=== PATIENT | male | born 1960 | race Caucasian/White ===

== ENCOUNTER 2019-07-10 13:07 | Emergency (ER) | payer SELFPAY ==
--- NOTE | 2019-07-10 14:18 | RAD ---
EXAM DESCRIPTION: Abdomen Flat Upright (accession [id number]), Chest,2 Views (accession [id number]) CLINICAL HISTORY: 59 years Male, bloody diarrhea 4 days COMPARISON: None. Findings: Four views/radiographs Cardiac silhouette and pulmonary vasculature are within normal limits. No pneumothorax. No pleural effusion. The lungs are hyperexpanded. The right lung is clear. Focal left perihilar infiltrate. Atherosclerotic plaque in the thoracic aorta. No free air beneath diaphragm. Nonobstructive bowel gas pattern. No suspicious calcification. No organomegaly. No air-fluid level. Moderate stool volume. No acute osseous abnormality identified. IMPRESSION: Focal left perihilar infiltrate which may reflect pneumonia. Recommend repeat chest radiograph in six weeks. Electronically signed by: Catalino Joy MD 07/10/2019 2:16 PM [facility]
--- NOTE | 2019-07-10 14:18 | RAD ---
EXAM DESCRIPTION: Abdomen Flat Upright (accession [id number]), Chest,2 Views (accession [id number]) CLINICAL HISTORY: 59 years Male, bloody diarrhea 4 days COMPARISON: None. Findings: Four views/radiographs Cardiac silhouette and pulmonary vasculature are within normal limits. No pneumothorax. No pleural effusion. The lungs are hyperexpanded. The right lung is clear. Focal left perihilar infiltrate. Atherosclerotic plaque in the thoracic aorta. No free air beneath diaphragm. Nonobstructive bowel gas pattern. No suspicious calcification. No organomegaly. No air-fluid level. Moderate stool volume. No acute osseous abnormality identified. IMPRESSION: Focal left perihilar infiltrate which may reflect pneumonia. Recommend repeat chest radiograph in six weeks. Electronically signed by: Catalino Joy MD 07/10/2019 2:16 PM [facility]
[2019-07-10] MEDS ORDERED: SODIUM CHLORIDE 0.9% 1000ML 1,000 ML IVS ONE ×2 (14:23→16:07)
[2019-07-10] MEDS ORDERED: ACETYLCYSTEIN 20 % 6,000 MG/30 ML VIAL PO ONE (14:24)
--- NOTE | 2019-07-10 15:39 | CT ---
EXAM DESCRIPTION: Abdomen/Pelvis w/Contrast CLINICAL HISTORY: rlq pain, bloody diarrhea COMPARISON: None. TECHNIQUE: Postcontrast CT images of the abdomen and pelvis are obtained using standard imaging protocol. This exam was performed according to our departmental dose-optimization program, which includes automated exposure control, adjustment of the mA and/or kV according to patient size and/or use of iterative reconstruction technique . FINDINGS: Findings in the lower chest are described on CT of the chest from today. The liver, spleen, pancreas, adrenal glands, and contracted gallbladder are unremarkable. Moderate mostly calcific atherosclerotic disease of the abdomen and pelvis. Focal area of decreased enhancement in the superior pole of the right kidney measures at least 1.8 x 1.4 cm. This has a somewhat wedge-shaped appearance. Small area more posteriorly is seen. Both kidneys show dual collecting systems. The ureters join proximally.. No nephrolithiasis. 2 mm nonobstructing calcification in the midpole calyx of the upper pole moiety of the left kidney best seen on coronal and sagittal reconstructed images. Moderate circumferential urinary bladder wall thickening is seen with poor distention of the urinary bladder. Bladder wall thickness measures 6 mm. Mild prostate calcifications. Appendix is normal and air-filled. Mild wall thickening of the stomach may be secondary to poor distention. No small bowel obstruction or bowel wall thickening. Mild to moderate scattered diverticuli of the colon most significant in the descending to sigmoid region without associated inflammatory changes or fluid collections. No pathologic lymphadenopathy. No free intraperitoneal air or abnormal drainable fluid collections. Osseous structures show no aggressive bony lesions. Mild spondylitic changes of the spine. IMPRESSION: Focal area of decreased attenuation or enhancement in the upper pole the right kidney is nonspecific. Differential includes focal area of infectious or inflammatory process such as focal lobar nephronia or pyelonephritis versus partial infarct. Correlate with urinalysis and culture for infectious etiology. Diffuse circumferential urinary bladder wall thickening could be secondary to poor distention of the urinary bladder versus some degree of chronic bladder outlet obstruction. Infectious or inflammatory process can have a similar appearance. Electronically signed by: Con North MD 07/10/2019 3:38 PM [employer]
--- NOTE | 2019-07-10 15:54 | CT ---
EXAM DESCRIPTION: CTA Chest CLINICAL HISTORY: upper back pain elevated ddimer COMPARISON: None. TECHNIQUE: Postcontrast CT images of the chest are obtained using pulmonary embolism imaging protocol. Three-D MIP reconstructed images of the arterial vasculature are obtained. Coronal and sagittal reconstructed images of the also provided. This exam was performed according to our departmental dose-optimization program, which includes automated exposure control, adjustment of the mA and/or kV according to patient size and/or use of iterative reconstruction technique . FINDINGS: Heart is normal size. Mild coronary artery calcifications. Mild dilatation of the ascending thoracic aorta which measures 4.1 cm at the aortic root and 4.1 cm of the mid ascending thoracic aorta. No dissection. Scattered calcified plaque of the thoracic aorta. No filling defects or emboli are seen in the pulmonary arteries. Borderline mediastinal lymphadenopathy. Lymph nodes measure maximum 9 mm short axis. Hilar lymph nodes are seen measuring up to 9 mm. No pleural or pericardial effusion. Lungs are normally aerated. Mild groundglass attenuation and interstitial thickening in the periphery of the right lower lobe. Similar area of airspace groundglass attenuation and interstitial thickening with mild bronchiectasis in the central left upper lobe. Calcified pulmonary nodule in the anterior left lower lobe. Mild areas of groundglass attenuation are seen in the periphery of the lower lobes bilaterally. Osseous structures show no aggressive bony lesions. Remote appearing anterior wedge compression deformities are seen at T3, T4, T5, and T6. IMPRESSION: Vague areas of groundglass attenuation and interstitial thickening with mild bronchiectasis in the right lower lobe and central left upper lobe likely represent infectious or inflammatory etiology. No solid soft tissue component is seen. Consider follow-up CT imaging in 6-12 months. Mild areas of groundglass attenuation in the periphery of the lungs bilaterally mainly in the lower lobes could represent areas of air trapping. Mild dilatation of the ascending thoracic aorta at the level of the aortic root and mid ascending thoracic aorta. Borderline mediastinal and hilar lymphadenopathy is likely reactive. Old granulomatous disease is seen. Electronically signed by: Con North MD 07/10/2019 3:52 PM [employer]
[2019-07-10] MEDS ORDERED: metroNIDAZOLE 500 MG TAB PO ONE (17:39)
[2019-07-10] MEDS ORDERED: OSELTAMIVIR 75 MG CAP PO ONE (17:39)
[2019-07-10] MEDS ORDERED: AMOXICILLIN & POT CLAVULANATE 875 MG TAB PO ONE (17:39)
--- NOTE | 2019-07-10 17:43 | ED.PDOC ---
History of Present Illness - General Chief Complaint: Respiratory Problem Stated Complaint: posterior chest pain, dyspnea Time Seen by Provider: 07/10/19 13:08 Source: patient Exam Limitations: no limitations - History of Present Illness Initial Comments: The patient is a 59-year-old male presented to the emergency room secondary to a constellation of symptoms. The patient has been having upper respiratory symptoms for the last 3 weeks. On Sunday of this week he went to his primary care doctor who did a swab and diagnosed him with influenza but apparently did not start him on Tamiflu. He has continued to have upper respiratory symptoms along with upper back pain that started yesterday. Additionally over the last 3 to 4 days he has started having 1-2 episodes of diarrhea with some blood in it. He has had low-grade fevers. No vomiting but mild nausea. No syncope or near syncope. He reports about a 12 pound weight loss over the past 3 weeks. No urinary symptoms. No chest pain. No palpitations. No known risk factors for C. difficile. He denies constipation or external hemorrhoids. Timing/Duration: unsure Severity: moderate Improving Factors: nothing Worsening Factors: nothing Associated Symptoms: cough, diaphoresis, fever/chills, loss of appetite, malaise, weakness Allergies/Adverse Reactions: Allergies NO KNOWN ALLERGY Allergy (Verified 08/28/13 08:07) Home Medications: Ambulatory Orders Lisinopril 20 mg PO DAILY 08/27/13 Amoxicillin & Pot Clavulanate [Augmentin Tab] 875 mg PO BID #10 tab 07/10/19 Esomeprazole Magnesium [Nexium] 40 mg PO DAILY #30 cap 07/10/19 Metoprolol Tartrate 100 mg PO BID 07/10/19 Metronidazole 500 mg PO TID #20 tab 07/10/19 Oseltamivir Capsule [Tamiflu] 75 mg PO BID 5 Days #10 capsule 07/10/19 Sucralfate Tab [Carafate Tab] 1 gm PO QID #60 tab 07/10/19 Review of Systems - Review of Systems Constitutional: States: fever, malaise, weakness EENTM: States: nose congestion, throat pain Respiratory: States: cough, short of breath - With activity Cardiology: States: no symptoms reported Gastrointestinal/Abdominal: States: diarrhea, nausea Genitourinary: States: no symptoms reported Musculoskeletal: States: see HPI - Body aches Skin: States: no symptoms reported Neurological: States: headache Endocrine: States: unexplained weight loss Hematologic/Lymphatic: States: no symptoms reported All other Systems: No Change from Baseline Past Medical History (General) - Patient Medical History Hx Seizures: No Hx Stroke: Yes - TIA Hx Asthma: No Hx of COPD: No Hx Cardiac Disorders: No Hx Congestive Heart Failure: No Hx Pacemaker: No Hx Hypertension: Yes Hx Diabetes: No Hx MRSA: No Surgical History: no surgical history - Vaccination History Hx Pneumococcal Vaccination: No - Social History Hx Tobacco Use: Yes Hx Alcohol Use: Yes - social drinker Hx Substance Use: No Hx Physical Abuse: No Hx Emotional Abuse: No Family Medical History - Family History Father Family History: Unknown Physical Exam - Physical Exam General Appearance: Alert, No apparent distress Eye Exam: bilateral normal Ears, Nose, Throat: hearing grossly normal, normal pharynx, nasal congestion Neck: full range of motion, supple Respiratory: no respiratory distress, no accessory muscle use, rhonchi Cardiovascular/Chest: normal peripheral pulses, regular rate, rhythm, no edema Peripheral Pulses: radial,right: 2+, radial,left: 2+ Gastrointestinal/Abdominal: soft, other - Mild right lower quadrant discomfort to palpation. No palpable mass. No rebound or peritoneal signs. 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 The patient tested positive for the flu earlier in the week. As he is still symptomatic we are going to go ahead and place him on Tamiflu. Additionally he will be covered with Augmentin for both pulmonary and GI reasons. The patient is having diarrhea with some blood in it. The source of this is not entirely certain at this point. No evidence of any uncontrolled bleeding. The patient is going to be covered with Augmentin and metronidazole for this purpose. Additionally I do want him to bring back a stool sample to be checked for C. difficile colitis as that certainly changes the treatment and monitoring. He will be placed on Nexium and Carafate for the next few weeks to reduce any gastritis issues. He has been told that if the condition worsens he will need to return for additional work-up and possibly endoscopy. I would also recommend the patient start taking a probiotic daily for the next month to help reduce intestinal upset from the antibiotics. ER warnings are given. Keep well- hydrated. Mild dehydration was treated here today. jovita soto [id number] - Results/Orders Results/Orders: Laboratory Tests 07/10/19 07/10/19 07/10/19 13:37 13:37 13:37 WBC RBC Hgb Hct MCV MCH MCHC RDW Plt Count MPV Absolute Neuts (auto) Absolute Lymphs (auto) Absolute Monos (auto) Absolute Eos (auto) Absolute Basos (auto) Neutrophils % Lymphocytes % Monocytes % Eosinophils % Basophils % PT 9.9 INR 1.00 PTT (SP) 29.0 D-Dimer, Quantitative Sodium 133 L Potassium 4.9 Chloride 93 L Carbon Dioxide 28 Anion Gap 16.9 BUN 8 Creatinine 0.79 BUN/Creatinine Ratio 10.1 Random Glucose 127 H Serum Osmolality 266.3 L Lactic Acid 2.6 H* Calcium 8.8 Magnesium 2.0 Total Bilirubin 0.4 AST 62 H ALT 52 Alkaline Phosphatase 72 Creatine Kinase 72 CK-MB (CK-2) 0.9 CK-MB (CK-2) % Not Reportable Troponin I 0.02 B-Natriuretic Peptide 17.1 Serum Total Protein 7.9 Albumin 3.6 Globulin 4.3 H Albumin/Globulin Ratio 0.8 L Amylase 150 H Lipase 53 H TSH 1.67 Urine Color Urine Appearance Urine pH Ur Specific Snyder Urine Protein Urine Glucose (UA) Urine Ketones Urine Blood Urine Nitrite Urine Bilirubin Urine Urobilinogen Ur Leukocyte Esterase Urine RBC Urine WBC Ur Epithelial Cells Urine Bacteria 07/10/19 07/10/19 07/10/19 13:37 13:37 16:45 WBC 3.9 L RBC 4.99 Hgb 16.6 Hct 48.7 MCV 97.6 H MCH 33.3 H MCHC 34.1 RDW 12.5 Plt Count 112 L MPV 9.2 Absolute Neuts (auto) 2.00 Absolute Lymphs (auto) 1.00 Absolute Monos (auto) 0.70 Absolute Eos (auto) 0.00 Absolute Basos (auto) 0.00 Neutrophils % 52.9 Lymphocytes % 27.1 Monocytes % 19.2 H Eosinophils % 0.3 L Basophils % 0.5 PT INR PTT (SP) D-Dimer, Quantitative 717 H* Sodium Potassium Chloride Carbon Dioxide Anion Gap BUN Creatinine BUN/Creatinine Ratio Random Glucose Serum Osmolality Lactic Acid Calcium Magnesium Total Bilirubin AST ALT Alkaline Phosphatase Creatine Kinase CK-MB (CK-2) CK-MB (CK-2) % Troponin I B-Natriuretic Peptide Serum Total Protein Albumin Globulin Albumin/Globulin Ratio Amylase Lipase TSH Urine Color Yellow Urine Appearance Clear Urine pH 7.5 Ur Specific Snyder 1.010 Urine Protein Negative Urine Glucose (UA) Negative Urine Ketones Negative Urine Blood Trace-intact H Urine Nitrite Negative Urine Bilirubin Negative Urine Urobilinogen 1.0 Ur Leukocyte Esterase Negative Urine RBC 0-1 Urine WBC 0 Ur Epithelial Cells 1-3 Urine Bacteria 0 EKG shows normal sinus rhythm 87 bpm. Borderline mild left axis deviation. No definitive ST segment or T wave changes indicative of acute ischemia. Normal R wave progression. Normal QT interval. CT scan of the abdomen pelvis with IV contrast shows mild bladder wall thickening though there is little urine in the bladder. There is a 1.8 cm lesion to the right upper pole of the kidney that is infarction versus infection. Additionally there is mild scattered groundglass opacities in the lungs in the right lower lung and left upper lung ibarra as well as old granulomatous disease. He does have borderline hilar lymphadenopathy. There is also mild dilation of the ascending aorta at 4.1 cm. See report. Moderate amount of stool. Departure - Departure Clinical Impression: Bloody diarrhea, Influenza, Dehydration Disposition: Discharge to Home or Self Care Condition: Fair Departure Forms: ED Discharge - Pt. Copy, Patient Portal Self Enrollment Instructions: Flu, Adult (DC) Diet: bland diet Activity: increase activity as tolerated Prescriptions: Amoxicillin & Pot Clavulanate [Augmentin Tab] 875 mg PO BID #10 tab Esomeprazole Magnesium [Nexium] 40 mg PO DAILY #30 cap Metronidazole 500 mg PO TID #20 tab Oseltamivir Capsule [Tamiflu] 75 mg PO BID 5 Days #10 capsule Sucralfate Tab [Carafate Tab] 1 gm PO QID #60 tab Home Medications: Ambulatory Orders Lisinopril 20 mg PO DAILY 08/27/13 Amoxicillin & Pot Clavulanate [Augmentin Tab] 875 mg PO BID #10 tab 07/10/19 Esomeprazole Magnesium [Nexium] 40 mg PO DAILY #30 cap 07/10/19 Metoprolol Tartrate 100 mg PO BID 07/10/19 Metronidazole 500 mg PO TID #20 tab 07/10/19 Oseltamivir Capsule [Tamiflu] 75 mg PO BID 5 Days #10 capsule 07/10/19 Sucralfate Tab [Carafate Tab] 1 gm PO QID #60 tab 07/10/19 Additional Instructions: The patient is a 59-year-old male presented to emergency room secondary to progression of symptoms over the last 3 weeks. The patient tested positive for the flu earlier in the week. As he is still symptomatic we are going to go ahead and place him on Tamiflu. Additionally he will be covered with Augmentin for both pulmonary and GI reasons. The patient is having diarrhea with some blood in it. The source of this is not entirely certain at this point. No evidence of any uncontrolled bleeding. The patient is going to be covered with Augmentin and metronidazole for this purpose. Additionally I do want him to bring back a stool sample to be checked for C. difficile colitis as that certainly changes the treatment and monitoring. He will be placed on Nexium and Carafate for the next few weeks to reduce any gastritis issues. He has been told that if the condition worsens he will need to return for additional work-up and possibly endoscopy. I would also recommend the patient start taking a probiotic daily for the next month to help reduce intestinal upset from the antibiotics. ER warnings are given. Keep well- hydrated. Mild dehydration was treated here today.
[2019-07-10] MEDS ORDERED: traMADol HCL 50 MG TAB PO ONE (17:55)
[2019-07-10 19:08] VITALS: TEMP 99.1; O2SAT 97
[2019-07-10 19:11] VITALS: BP 160/88
== END 2019-07-10 18:10 | disposition home or self-care (01) ==
LOC: ER 13:07
DX: R19.7 Diarrhea, unspecified (principal); K92.1 Melena; E86.0 Dehydration; J11.1 Influenza due to unidentified influenza virus with other respiratory manifestations; M54.6 Pain in thoracic spine; I10 Essential (primary) hypertension; Z86.73 Personal history of transient ischemic attack (TIA), and cerebral infarction without residual deficits; Z87.891 Personal history of nicotine dependence; Z79.899 Other long term (current) drug therapy
CPT/HCPCS: 71046; 71275; 74019; 74177; 80053; 81001; 82150; 82550; 82553; 83605; 83690; 83735; 83880; 84443; 84484; 85025; 85379; 85610; 85730; 93005; J7030

== ENCOUNTER → 2019-07-11 | Outpatient (CLI) | payer SELFPAY | LOC: LAB.O 11:30 | PROVIDERS: ATTEND Family Medicine | DX: A04.72 Enterocolitis due to Clostridium difficile, not specified as recurrent (principal) ==